=== PATIENT | female | born 1955 | race Caucasian/White ===

== ENCOUNTER 2018-10-16 16:39 | Emergency (ER) | payer MEDICAID ==
[~2018-10-16] VITALS: Ht 149.9 cm; Wt 83.0 kg
[~2018-10-16 16:39] MED LIST: CIPROFLOXACIN250 M2 PO; KEFLEX500 MG PO; LAC PO; METFORMIN ER500 M1 PO; NORCO1 TA2 PO
[2018-10-16 16:47] VITALS: Ht 149.9 cm; Wt 83.0 kg
[2018-10-16 17:43] LABS: BASOPHIL % 0.4 % (0-2); PLATELET COUNT 181 x10^3mcL (130-400)
[2018-10-16 17:44] LABS: RED CELL DISTRIBUTION WIDTH 15.3 % (11.5-14.5)
[2018-10-16 17:50] LABS: CALCIUM 8.3 mg/dL (8.5-10.1); CARBON DIOXIDE 29.5 mmol/L (21-32); CREATININE SERUM 1.1 mg/dL (0.6-1.0); POTASSIUM SERUM 4.5 mmol/L (3.5-5.1)
[2018-10-16 18:03] LABS: ALBUMIN 3.1 g/dL (3.4-5.0); BILIRUBIN TOTAL 0.3 mg/dL (0.20-1.00); TOTAL PROTEIN, SERUM 8.7 g/dL (6.4-8.2)
[2018-10-16 18:33] VITALS: BP 121/62
== END 2018-10-16 18:33 | disposition home or self-care (01) ==
LOC: ED 16:39
PROVIDERS: Emergency Medicine
DX: H70.092 Acute mastoiditis with other complications, left ear (principal); E11.9 Type 2 diabetes mellitus without complications
CPT/HCPCS: 36415; Q0092